=== PATIENT | female | born 1960 | race African-American/Black ===

== ENCOUNTER 2017-11-19 02:25 | Inpatient (IN) | payer SELFPAY ==
[~2017-11-19] VITALS: Ht 165.1 cm; Wt 140.6 kg
[2017-11-19] VITALS (10 sets, daily range): BP systolic 125–198; BP diastolic 79–103
[~2017-11-19 02:25] MED LIST: AMOX500C25 PO; ASPI325E46 PO; BENA40TA17 PO; CHLO120L4 PO; HYDR-1807 PO; POTA10CE85 PO; SIMV20TA6 PO; [UNRECOGNIZED DRUG - CODE] PO
--- NOTE | 2017-11-19 02:44 | NUR ---
PATIENT AMBULATED TO ER BED 10
[2017-11-19] MEDS ORDERED: KETOROLAC 60 MG/2 ML VIAL IM ONE (02:55)
--- NOTE | 2017-11-19 03:14 | NUR ---
PT PRESENTS TO ER C/O LOWER BACK PAIN X2 DAYS. BACK PAIN 10/10, RADIATING DOWN LEFT LEG. PT STATES SHE WAS MOVING "STUFF FOR A WEDDING" WHEN SHE FELT A "POP" ON LEFT SIDE OF LOWER BACK. PT DENIES TRAUMA TO AREA. SKIN TO AFFECTED AREA IS WARM, DRY, INTACT. PT STATES SHE HAS BEEN TAKING IBUPROFEN W/ MINIMAL RELIEF, LAST DOSE AT 10PM. PMH HTN, NKA
[2017-11-19] MEDS ORDERED: NACL 0.9% 1,000 ML IV SCH ×2 (04:01→08:07)
[2017-11-19] MEDS ORDERED: ONDANSETRON 4 MG/2 ML VIAL IVP ONE (04:05)
[2017-11-19] MEDS ORDERED: MORPHINE SULFATE 10 MG/ML SYR IVP ONE (04:05)
[2017-11-19 04:17] LABS: BASOPHILS # (AUTO) 0.1 K/uL (0.00-0.22); EOSINOPHILS # (AUTO) 0.1 K/uL (0-0.4); HEMATOCRIT 37.9 % (36-48); HEMOGLOBIN 12.3 g/dL (12.0-16.0); LYMPHOCYTES # (AUTO) 1.5 K/uL (2.5-16.5); MEAN CORPUSCULAR HEMOGLOBIN 28 pg (27-31); MEAN CORPUSCULAR HGB CONC 32 g/dL (33-37); MEAN CORPUSCULAR VOLUME 85 fL (80-94); MONOCYTES # (AUTO) 0.3 K/uL (0.8-1.0); MONOCYTES % (AUTO) 3.5 % (1.7-9.3); NEUTROPHILS # (AUTO) 5.6 K/uL (1.8-7.7); NEUTROPHILS % (AUTO) 74.5 % (42.2-75.2); PLATELET COUNT (AUTO) 286 K/uL (140-450); RED BLOOD CELL COUNT(AUTO) 4.47 MIL/uL (4.20-5.40); WHITE BLOOD COUNT (AUTO) 7.6 K/uL (4.8-10.8)
[2017-11-19 04:29] LABS: ANION GAP 14.1 (8-16); CARBON DIOXIDE 28.4 mmol/L (21-32); CREATININE 1.1 mg/dL (0.6-1.3); POTASSIUM 3.5 mmol/L (3.5-5.1)
--- NOTE | 2017-11-19 04:30 | NUR ---
PT IN BED RESTING, WILL CONTINUE TO MONITOR.
[2017-11-19 04:34] LABS: ALBUMIN 3.3 g/dL (3.4-5.0); TOTAL BILIRUBIN 0.3 mg/dL (0.0-1.0)
[2017-11-19 04:38] LABS: APPEARANCE,URINE CLEAR (CLEAR); BILIRUBIN,URINE NEGATIVE (NEGATIVE); BLOOD, URINE 1+ (NEGATIVE); COLOR,URINE YELLOW (YELLOW); LEUKOCYTE ESTERASE ,URINE NEGATIVE (NEGATIVE); NITRITE, URINE NEGATIVE (NEGATIVE); UGLUCOSE NEGATIVE (NEGATIVE)
[2017-11-19 04:52] LABS: HYALINE CASTS, URINE 0-10 /LPF (None Seen); RBC,URINE 3-10 (FEW) /HPF (0-5); WBC,URINE 0-5 (RARE) /HPF (0-5)
--- NOTE | 2017-11-19 05:15 | NUR ---
PT IN BED, LAYING DOWN, WILL CONTINUE TO MONITOR.
[2017-11-19] MEDS ORDERED: [UNRECOGNIZED DRUG - OTHER] BOTH EYES (06:35)
--- NOTE | 2017-11-19 07:17 | NUR ---
Pt report given to JOSE NEVES. Transfer of care at this time.
--- NOTE | 2017-11-19 07:25 | NUR ---
RECEIVED REPORT FROM JOSE MATA. PT C/O PAIN 05/16.BP 140/85,P 54/MIN. Respirations even and unlabored. NOTIFIED DR MONGE.
[2017-11-19] MEDS ORDERED: MORPHINE SULFATE 5 MG/ML VIAL IVP ONE (07:30)
[2017-11-19] MEDS ORDERED: ACETAMINOPHEN 325 MG TAB PO PRN (08:10)
[2017-11-19] MEDS ORDERED: DOCUSATE SODIUM 100 MG GELCAP PO PRN (08:10)
[2017-11-19] MEDS ORDERED: ONDANSETRON 4 MG/2 ML VIAL IM/IVP PRN (08:10)
[2017-11-19] MEDS ORDERED: HYDROcodone/APAP 7.5/325 MG 1 TAB PO PRN (08:10)
[2017-11-19] MEDS ORDERED: MORPHINE SULFATE 2 MG/ML SYR IVP PRN ×2 (08:10→23:50)
--- NOTE | 2017-11-19 08:30 | NUR ---
PATIENT BROUGHT TO UNIT FROM ER VIA GURNEY. RECEIVED REPORT AT BEDSIDE. PATIENT IS AMBULATORY AND AAOX4. NO SIGNS AND SYMPTOMS OF ACUTE DISTRESS NOTED AT THIS TIME. PATIENT HAS IV TO LEFT AC 20G, SITE IS CLEAN, DRY, PATENT AND INTACT. SKIN IS INTACT. ORIENTED PATIENT TO THE ROOM. EXPLAINED THE CALL LIGHT TO HER. MADE HER AWARE OF THE PHONE. PATIENT VERBALIZED UNDERSTANDING. MOST BELONGINGS AT BEDSIDE. REQUESTED TO KEEP WALLET IN SAFE. WILL CALL ADMITTING TO COME GET HER WALLET. BED IN LOWEST POSITION, SIDE RAILS UP X2, CALL LIGHT PLACED WITHIN REACH. WILL CONTINUE TO MONITOR.
--- NOTE | 2017-11-19 08:40 | NUR ---
Patient will be admitted to care of DR WHITE. Admited to TELE. Will go to room 119A. Belongings list completed. Report to JOSE FLORES.
[2017-11-19] MEDS ORDERED: HYDRALAZINE HYDROCHLORIDE PO SCH (09:00)
[2017-11-19] MEDS: hydrALAZINE 25 MG TAB PO SCH ×2 (09:00→21:33)
[2017-11-19] MEDS: POTASSIUM CHLORIDE 10 MEQ TABER PO SCH (09:00)
[2017-11-19] MEDS ORDERED: CHLORHEXIDINE GLUCONATE PO SCH (09:00)
[2017-11-19] MEDS: BENAZEPRIL 20 MG TAB PO SCH ×2 (09:00→21:34)
[2017-11-19] MEDS ORDERED: NON-FORMULARY ITEM (Potassium Chloride 1 TAB) PO SCH (09:00)
[2017-11-19] MEDS: DOCUSATE SODIUM 100 MG GELCAP PO SCH (09:00)
[2017-11-19] MEDS: ASPIRIN 325 MG TABEC PO SCH (09:00)
[2017-11-19] MEDS ORDERED: NON-FORMULARY ITEM (Benazepril Hydrochloride (Benazepril) 40 MG) PO SCH (09:00)
--- NOTE | 2017-11-19 09:15 | NUR ---
PATIENT HAS BEEN SCREENED AND CATEGORIZED HIGH NUTRITION RISK. PATIENT WILL BE SEEN WITHIN 1-2 DAYS OF ADMISSION. 11/19/18-11/20/[address]
--- NOTE | 2017-11-19 09:20 | NUR ---
ADMITTING CAME AND COLLECTED PATIENTS BLACK WALLET TO KEEP IN THE SAFE. FINANCIAL CONTENTS OF THE WALLET CONTAIN: $50X1, $20X1, $5X1, $1'SX4, $1.'SX2, $.25'SX8, $.05X2, $.01'SX2 = $81.32. A BLUE VISA [employer] CREDIT CARD, SOCIAL SECURITY CARD, AAA CARD, [employer] CARD, [employer] VISA CARD. PATIENT SIGNED VALUABLES RECORD. PLACED COPY IN CHART.
[2017-11-19 10:40] LABS: CHOL/HDL RATIO 2.2 (1-4.5); FREE T4 (FREE THYROXINE) 0.97 ng/dL (0.76-1.46); MAGNESIUM 1.8 mg/dL (1.8-2.4); PHOSPHORUS 3.2 mg/dL (2.5-4.9); THYROID STIMULATING HORMONE 2.78 uIU/mL (0.34-3.74)
[2017-11-19 13:02] LABS: PROTHROMBIN TIME 9.1 secs (10.8-13.4)
[2017-11-19] MEDS ORDERED: CHLO50TA33 PO (13:36)
[2017-11-19] MEDS ORDERED: KETOROLAC 30 MG/ML VIAL IM PRN (14:05)
[2017-11-19] MEDS ORDERED: LORazepam 0.5 MG TAB PO PRN (15:35)
--- NOTE | 2017-11-19 16:30 | NUR ---
PATIENT WAS TAKEN TO THE OR VIA GURNEY.
[2017-11-19] MEDS ORDERED: BUPIVACAINE-MPF 0.25% 30 ML VIAL INJ ONE (16:31)
[2017-11-19] MEDS ORDERED: ceFAZolin 1,000 MG VIAL ONE (16:31)
[2017-11-19] MEDS ORDERED: ROCURONIUM 50 MG/5 ML VIAL IV ONE (16:50)
[2017-11-19] MEDS ORDERED: hydrALAZINE 20 MG/ML VIAL ONE (16:50)
[2017-11-19] MEDS ORDERED: SUCCINYLCHOLINE CHLORIDE 200 MG/10 ML VIAL IVP ONE (16:50)
[2017-11-19] MEDS ORDERED: cefTRIAXone 1,000 MG VIAL ONE (16:50)
[2017-11-19] MEDS ORDERED: DEXAMETHASONE 10 MG/ML VIAL ONE (16:50)
[2017-11-19] MEDS ORDERED: SEVOFLURANE 250 ML BTL INH ONE (16:50)
[2017-11-19] MEDS ORDERED: PROPOFOL 200 MG/20 ML VIAL IV ONE (16:50)
[2017-11-19] MEDS ORDERED: MIDAZOLAM 2 MG/2 ML VIAL ONE (16:56)
[2017-11-19] MEDS ORDERED: fentaNYL 0.05 MG/ML VIAL ONE (16:56)
[2017-11-19] MEDS ORDERED: MEPERIDINE 50 MG/ML SYR ONE (16:56)
[2017-11-19] MEDS: LACTATED RINGERS 1,000 ML IV SCH ×2 (18:23→20:26)
[2017-11-19] MEDS ORDERED: ONDANSETRON 4 MG/2 ML VIAL IVP PRN (18:25)
[2017-11-19] MEDS ORDERED: MEPERIDINE 25 MG/ML SYR IVP PRN (18:25)
[2017-11-19] MEDS ORDERED: diphenhydrAMINE 50 MG/ML VIAL IVP PRN (18:25)
--- NOTE | 2017-11-19 19:37 | NUR ---
ENDORSED PATIENT TO NIGHT RN FOR CONTINUITY OF CARE. PATIENT IN STABLE CONDITION
--- NOTE | 2017-11-19 19:46 | NUR ---
PATIENT STILL IN OPERATING ROOM SINCE 1599
[2017-11-19] MEDS: HYDROmorphone 1 MG/ML AMP IVP PRN ×2 (20:05→20:15)
[2017-11-19] MEDS ORDERED: HYDROmorphone PFS 2 MG/ML SYR ONE (20:13)
[2017-11-19 20:21] LABS: HEMATOCRIT 37.3 % (36-48); HEMOGLOBIN 12.2 g/dL (12.0-16.0); MEAN CORPUSCULAR HEMOGLOBIN 28 pg (27-31); MEAN CORPUSCULAR HGB CONC 33 g/dL (33-37); MEAN CORPUSCULAR VOLUME 85 fL (80-94); NEUTROPHILS % (AUTO) 81.6 % (42.2-75.2); PLATELET COUNT (AUTO) 255 K/uL (140-450); RED CELL DISTRIBUTION WIDTH 15.5 % (11.6-13.7)
[2017-11-19 20:22] LABS: BASOPHILS % (AUTO) 0.4 % (0.0-2.0); EOSINOPHILS % (AUTO) 0.2 % (0.0-4.0); LYMPHOCYTES # (AUTO) 1.5 K/uL (2.5-16.5); LYMPHOCYTES % (AUTO) 15.2 % (20.5-51.1); MONOCYTES # (AUTO) 0.3 K/uL (0.8-1.0); MONOCYTES % (AUTO) 2.6 % (1.7-9.3); NEUTROPHILS # (AUTO) 8.2 K/uL (1.8-7.7)
[2017-11-19 20:31] LABS: ANION GAP 10.2 (8-16); CREATININE 0.9 mg/dL (0.6-1.3); POTASSIUM 3.2 mmol/L (3.5-5.1)
--- NOTE | 2017-11-19 20:38 | NUR ---
PT CAME BACK FROM SURGERY, REPORT RECEIVED FROM OR NURSE PEARSON RN, PT STABLE, NO DISTRESS NOTED, IV TO L HAND 22 G INFUSING LACTATE RINGER, PATENT, INITIAL ASSESSMENT DONE, ALL SAFETY PRECAUTION MET, WILL CONTINUE TO MONITOR.
[2017-11-19] MEDS ORDERED: [UNRECOGNIZED DRUG - OTHER] BOTH EYES SCH (21:00)
--- NOTE | 2017-11-19 21:25 | NUR ---
ROCHEPHIN WAS GIVEN IN RECOVERY ROOM AT 1720.
[2017-11-19] MEDS: SIMVASTATIN 20 MG TAB PO SCH (21:34)
[2017-11-19] MEDS: DEXT 5% / NACL 0.45% 1,000 ML IV SCH (23:12)
--- NOTE | 2017-11-19 23:49 | NUR ---
PT STATED STILL FEELING PAIN, 05/16 ON THE ABDOMINAL AREA, REPORTED TO DR. LOPEZ REGARDING PT PAIN NOT RELIEVED BY PAIN MEDICATION, STATED UNDERSTANDING AND WILL ORDER ANOTHER DOSE OF MORPHINE 2MG.
[2017-11-19] MEDS ORDERED: MORPHINE SULFATE 2 MG/ML SYR IVP SCH (23:50)
[2017-11-20] MEDS ORDERED: MORPHINE SULFATE 2 MG/ML SYR ONE (00:10)
--- NOTE | 2017-11-20 00:13 | NUR ---
PT STILL C/O OF PAIN 05/16, PAIN MEDICATION GIVEN, DR. LOPEZ AWARE.
[2017-11-20 00:38] VITALS: BP 138/79
[2017-11-20] MEDS: LACTATED RINGERS 1,000 ML IV SCH ×2 (02:43→11:03)
[2017-11-20] MEDS: DEXT 5% / NACL 0.45% 1,000 ML IV SCH ×2 (03:35→09:33)
[2017-11-20] MEDS: MORPHINE SULFATE 4 MG/ML SYR IVP PRN ×3 (03:36→10:53)
--- NOTE | 2017-11-20 03:36 | NUR ---
PT C/O OF PAIN ON THE ABD, PAIN MEDICATION GIVEN, PT TOLERATED WELL, NO DISTRESS NOTED, WILL CONTINUE TO MONITOR.
[2017-11-20 04:00] VITALS: BP 126/78
--- NOTE | 2017-11-20 05:50 | NUR ---
AKINS CATH TAKEN OUT, PT TOLERATED WELL, NO DISTRESS NOTED, CALL LIGHT WITHIN REACH, WILL CONTINUE TO MONITOR.
[2017-11-20 06:19] LABS: T4 (THYROXINE) 6.9 ug/dL (4.5-12.0)
[2017-11-20 06:37] LABS: ANION GAP 10.7 (8-16); CARBON DIOXIDE 30.2 mmol/L (21-32); CREATININE 1.1 mg/dL (0.6-1.3); POTASSIUM 3.9 mmol/L (3.5-5.1)
[2017-11-20 06:42] LABS: HEMATOCRIT 36.2 % (36-48); HEMOGLOBIN 12.1 g/dL (12.0-16.0); MEAN CORPUSCULAR HEMOGLOBIN 29 pg (27-31); MEAN CORPUSCULAR VOLUME 85 fL (80-94); RED BLOOD CELL COUNT(AUTO) 4.26 MIL/uL (4.20-5.40); WHITE BLOOD COUNT (AUTO) 10.5 K/uL (4.8-10.8)
[2017-11-20 06:52] LABS: MEAN CORPUSCULAR HGB CONC 34 g/dL (33-37); PLATELET COUNT (AUTO) 269 K/uL (140-450); RED CELL DISTRIBUTION WIDTH 15.7 % (11.6-13.7)
--- NOTE | 2017-11-20 07:30 | NUR ---
RECEIVED PT AAOX4. NO SOB NOTED. NO C/O PAIN AT THIS TIME. IV TO LT HAND PATENT AND INTACT. CHEST CLEAR, DIMINISHED AIR ENTRY TO THE BASES, WITH OXYGEN AT 2LPM VIA CANNULA FOR COMFORT. WITH NG TUBE TO LEFT NARES CONNECTED TO LOW INTERMITTENT WALL SUCTION, DRAINING SMALL AMOUNTS OF SLIGHT YELLOW STOMACH FLUIDS. ABDOMEN LARGE AND SOFT, WITH HYPOACTIVE BOWEL SOUNDS NOTED. WITH (VERTICAL) ABDOMINAL SURGICAL INCISION S/P EXLAP, UMBILICAL HERNIA REPAIR 11/19/2017, GAUZE DRESSING, COVERED WITH TRANSPARENT TAPE, CLEAN DRY AND INTACT. INSTRUCTED PT ON THE USE OF INCENTIVE SPIROMETRY. INSTRUCTED PT TO CALL FOR ASSISTANCE, CALL LIGHT WITHIN REACH, PT VERBALIZED UNDERSTANDING.
--- NOTE | 2017-11-20 07:35 | NUR ---
ENDORSED PLAN OF CARE TO DAY SHIFT NURSE EDNA, PT STABLE, NO DISTRESS NOTED, CALL LIGHT WITHIN REACH.
[2017-11-20 08:00] VITALS: BP 123/77
[2017-11-20 09:28] LABS: LYMPHOCYTES % (MANUAL) 10 % (20-46)
[2017-11-20 09:29] LABS: MONOCYTES % (MANUAL) 7 % (5-12)
--- NOTE | 2017-11-20 09:30 | NUR ---
BEDSIDE COMMODE PROVIDED. PT INSTRUCTED TO CALL FOR ASSISTANCE, VERBALIZED UNDERSTANDING.
[2017-11-20] MEDS: PANTOPRAZOLE 40 MG INJ VIAL IVP SCH (09:33)
[2017-11-20] MEDS: DOCUSATE SODIUM 100 MG GELCAP PO SCH (10:46)
[2017-11-20] MEDS: hydrALAZINE 25 MG TAB PO SCH ×2 (10:46→20:35)
[2017-11-20] MEDS: POTASSIUM CHLORIDE 10 MEQ TABER PO SCH (10:47)
[2017-11-20] MEDS: BENAZEPRIL 20 MG TAB PO SCH ×2 (10:47→20:35)
[2017-11-20] MEDS: ASPIRIN 325 MG TABEC PO SCH (10:48)
[2017-11-20 12:00] VITALS: BP 109/66
--- NOTE | 2017-11-20 13:00 | NUR ---
PT SEEN BY DR. YARBROUGH WITH NEW ORDERS.
--- NOTE | 2017-11-20 13:05 | NUR ---
NO DRESSING CHANGED PER DR. YARBROUGH UNTIL HIS VISIT TOMORROW 11/21/2017.
[2017-11-20] MEDS: POTASSIUM CHL 20 MEQ/D5-1/2NS 1,000 ML IV SCH ×3 (13:31→22:56)
[2017-11-20] MEDS ORDERED: HYDROmorphone PFS 2 MG/ML SYR IVP PRN (13:35)
--- NOTE | 2017-11-20 13:37 | NUR ---
NG TUBE DISCONTINUED. PT TOLERATED PROCEDURE WELL. TOTAL OUTPUT SINCE 7AM THIS MORNING 80 MLS OF LIGHT YELLOW STOMACH FLUIDS.
--- NOTE | 2017-11-20 13:57 | NUR ---
11/20/2017 RD INITIAL ASSESSMENT COMPLETED PLEASE REFER TO NUTRITION ASSESSMENT UNDER CARE ACTIVITY FOR ESTIMATED NUTRITIONAL NEEDS. 1.CONTINUE NPO STATUS MEDICALLY APPROPRIATE. 2.ADVANCE DIET TOLERATED ONCE PT ABLE TO TOLERATE PO INTAKE. RD TO FOLLOW-UP IN 2-3 DAYS PATIENT IS HIGH RISK. SEA ZAPATA RD
--- NOTE | 2017-11-20 14:00 | NUR ---
ENCOURAGED PT TO URINATE WITH THE USE OF BEDPAN, PT REFUSED STATED SHE DOES NOT FEEL LIKE URINATING YET. WILL FOLLOW UP.
--- NOTE | 2017-11-20 16:00 | NUR ---
PT STILL NOT URINATING SINCE THE AKINS CATHETER WAS DISCONTINUED. VISITORS AT THE BEDSIDE. PT STATED SHE WILL GET UP TO THE BEDSIDE COMMODE WHEN HER VISITORS LEAVE.
--- NOTE | 2017-11-20 17:30 | NUR ---
PT ABLE TO URINATE IN THE BEDSIDE COMMODE WITH ASSISTANCE. NOTED 800 MLS OF SLIGHTLY DARK ISSAC URINE. URINE SPECIMEN COLLECTED AND SENT TO LAB FOR UDS. ACTIVITY TOLERATED WELL BY PT.
--- NOTE | 2017-11-20 18:58 | NUR ---
PT RESTING. NO SOB NOTED. NO SIGNS OF PAIN AT THIS TIME. WILL ENDORSE TO NEXT SHIFT NURSE FOR CONTINUITY OF CARE.
[2017-11-20 19:31] LABS: BARBITURATE, URINE POS. ng/ml (NEG <=200); BENZODIAZEPINE, URINE POS. ng/mL (NEG <=200); CANNABINOID, URINE NEG. ng/mL (NEG <=50); COCAINE, URINE NEG. ng/mL (NEG <=300); OPIATE, URINE POS. ng/mL (NEG <=2000); PHENCYCLIDINE SCREEN,URINE NEG. ng/mL (NEG <=25)
--- NOTE | 2017-11-20 19:53 | NUR ---
RECEIVED FROM AM RN IN BED WITH SPOUSE VISITING. MORBIDLY OBESE FEMALE .ABLE TO VERBALIZE NEEDS WELL. NO SOB. NO PAIN COMPLAINTS AT THIS TIME. PT. S/P EXPLORE LAP /HERNIA REPAIR/LYSIS ADHESION REPAIR. ABDOMINAL WALL DRESSING INTACT AND NO BLEEDING. IVF SITE TO LEFT HAND#22 INTACT AND NO INFILTRATION NOTED. CALL LIGHT WITH IN REACH. CARE PLANS FOR THE NIGHT DISCUSSED WITH HER AND TO USE CALL LIGHT FOR ANY HELP SHE MAY NEED OR IF IN PAIN. A/O X4. ROM X 4. CLEAR SPEECH.
[2017-11-20 20:27] VITALS: BP 117/67
[2017-11-20] MEDS: SIMVASTATIN 20 MG TAB PO SCH (20:35)
[2017-11-20] MEDS: LATANOPROST 0.005% OP 2.5 ML BTL OP SCH (20:36)
[2017-11-20] MEDS ORDERED: SIMETHICONE 80 MG TAB.CHEW PO SCH (20:55)
[2017-11-20] MEDS: HYDROmorphone PFS 2 MG/ML SYR IVP PRN (22:44)
--- NOTE | 2017-11-20 23:28 | NUR ---
PT. AMBULATING AROUND THE UNIT WITH STANDBY ASSIST BY CASE PLANNER. MEDICATED WITH DILAUDID 1MG ORDERED. S/P EXPLORE LAP. VERBALIZES WELL. ABLE TO USE CALL LIGHT . A /O X 4.
--- NOTE | 2017-11-21 | NUR ---
NO COMPLAINTS DONE. STILL AWAKE WATCHING TV. ABLE TO USE CALL LIGHT FOR HELP.
[2017-11-21 05:44] VITALS: BP 113/74
[2017-11-21] MEDS: HYDROmorphone PFS 2 MG/ML SYR IVP PRN (05:49)
--- NOTE | 2017-11-21 05:56 | NUR ---
PT. BEEN AWAKE ALL NIGHT. REQUESTED FOR PAIN RELIEVER AT THIS TIME AND ANTI NAUSEA MEDICATION. MEDICATED WITH ZOFRAN AND DILAUDID IVP ORDERED. AWAKE, ALERT AND ORIENTED. ENCOURAGED TO STOP WATCHING TV RT PT. BEEN CLOSING EYES THIS SHIFT BUT EVENTUALLY OPENS EYES AND WATCHES TV. NO BLEEDING TO INCISION SITE.
[2017-11-21 06:14] LABS: BASOPHILS # (AUTO) 0.1 K/uL (0.00-0.22); BASOPHILS % (AUTO) 0.7 % (0.0-2.0); EOSINOPHILS % (AUTO) 0.2 % (0.0-4.0); HEMATOCRIT 34.5 % (36-48); HEMOGLOBIN 11.3 g/dL (12.0-16.0); LYMPHOCYTES # (AUTO) 1.5 K/uL (2.5-16.5); LYMPHOCYTES % (AUTO) 14.6 % (20.5-51.1); MEAN CORPUSCULAR HEMOGLOBIN 28 pg (27-31); MEAN CORPUSCULAR HGB CONC 33 g/dL (33-37); MEAN CORPUSCULAR VOLUME 85 fL (80-94); MONOCYTES # (AUTO) 0.5 K/uL (0.8-1.0); MONOCYTES % (AUTO) 4.9 % (1.7-9.3); NEUTROPHILS # (AUTO) 8.4 K/uL (1.8-7.7); NEUTROPHILS % (AUTO) 79.6 % (42.2-75.2); PLATELET COUNT (AUTO) 290 K/uL (140-450); RED BLOOD CELL COUNT(AUTO) 4.06 MIL/uL (4.20-5.40); RED CELL DISTRIBUTION WIDTH 14.6 % (11.6-13.7); WHITE BLOOD COUNT (AUTO) 10.5 K/uL (4.8-10.8)
[2017-11-21 06:31] LABS: ANION GAP 11.5 (8-16); CARBON DIOXIDE 27.7 mmol/L (21-32); CREATININE 1.2 mg/dL (0.6-1.3); POTASSIUM 3.2 mmol/L (3.5-5.1)
[2017-11-21] MEDS: POTASSIUM CHL 20 MEQ/D5-1/2NS 1,000 ML IV SCH ×2 (07:10→16:00)
--- NOTE | 2017-11-21 07:35 | NUR ---
ENDORSED TO THE NEXT RN FOR CONTINUITY OF CARE. SLEEPING. WOKE UP EASILY WHEN SHE HEARD US ENDORSING RN TO RN. NO COMPLAINTS DONE. GOOD AFFECT. SMILING. CALL LIGHT WITH IN REACH. DRESSING TO ABDOMEN INTACT AND NO BLEEDING.
--- NOTE | 2017-11-21 07:36 | NUR ---
RECEIVED REPORT FROM FACILITY ASSISTANT NURSE JALIL AT BEDSIDE FOR CONTINUITY OF CARE. PT IS AWAKE AND ORIENTED X4. INTRODUCED SELF AND UPDATED BOARD. NO SIGN OF DISTRESS. ABD DRESSING DRY AND INTACT. PT STATED SHE HAS NOT PASSED GAS YET. REPORTED THAT SHE AMBULATED DOWN THE [place] LAST NIGHT. NO COMPLAINTS AT THIS TIME. BED IN LOW POSITION, WHEELS LOCKED, CALL LIGHT WITHIN REACH. WILL CONTINUE TO MONITOR,
[2017-11-21 08:00] VITALS: BP 104/53
--- NOTE | 2017-11-21 08:10 | NUR ---
AWAKE AND ALERT RESPONSIVE TO FORGING MACHINE OPERATOR VERBAL COMMANDS C/O NASAL DRYNESS WITH SUPPLEMENTAL OXYGEN USE ADDED HUMIDIFIER
[2017-11-21] MEDS: BENAZEPRIL 20 MG TAB PO SCH ×2 (09:00→21:22)
[2017-11-21] MEDS: hydrALAZINE 25 MG TAB PO SCH ×2 (09:00→21:22)
[2017-11-21] MEDS: DOCUSATE SODIUM 100 MG GELCAP PO SCH (09:24)
[2017-11-21] MEDS: POTASSIUM CHLORIDE 10 MEQ TABER PO SCH (09:24)
[2017-11-21] MEDS: ASPIRIN 325 MG TABEC PO SCH (09:24)
[2017-11-21] MEDS: PANTOPRAZOLE 40 MG INJ VIAL IVP SCH (09:24)
[2017-11-21] MEDS ORDERED: MAGNESIUM OXIDE 400 MG TAB PO SCH (09:35)
[2017-11-21] MEDS ORDERED: ALBUTEROL 0.083% 2.5 MG/3 ML NEBU INH PRN (09:35)
[2017-11-21] MEDS ORDERED: IPRATROPIUM 0.02% 0.5 MG/2.5 ML NEBU INH PRN (09:35)
--- NOTE | 2017-11-21 11:45 | NUR ---
PT GOT UP OUT OF BED TO USE BSC. PT SAID SHE ACCIDENTALLY GOT URINE ON FLOOR. GAVE CLEAN GOWN, SOCKS AND TOWELS FOR PT CLEAN. PAGED EVS TO MOP FLOOR. PT WENT BACK TO CHAIR. WATCHING TV. NO SIGNS OF DISTRESS. PT DENIES PAIN. CALL LIGHT WITHIN REACH. WILL CONTINUE TO MONITOR.
[2017-11-21] MEDS: HYDROcodone/APAP 10/325 MG 1 TAB TAB PO PRN ×2 (13:49→21:23)
--- NOTE | 2017-11-21 15:00 | NUR ---
PT IS ASLEEP IN BED RIGHT NOW. ASKED FOR WARM BLANKET. DENIES ABD PAIN AT THIS TIME. CALL LIGHT WITHIN REACH. WILL CONTINUE TO MONITOR.
[2017-11-21 16:00] VITALS: BP 145/82
--- NOTE | 2017-11-21 17:33 | NUR ---
STARTED IV TO R HAND 24G. D/C IV TO L WRIST 22G. IV CATHETER TIP INTACT. APPLIED DRESSING AND PRESSURE TO SITE NO BLEEDING NOTED.
--- NOTE | 2017-11-21 19:14 | NUR ---
ENDORSED PT TO CLOTH SHRINKER NURSE JALIL AT BEDSIDE FOR CONTINUITY OF CARE. PT IN STABLE CONDITION.
[2017-11-21] MEDS ORDERED: BUDESONIDE 0.25 MG/2 ML NEBU INH SCH (19:30)
--- NOTE | 2017-11-21 19:50 | NUR ---
RECEIVED FROM AM RN IN BED SLEEPING. PER AM RN PT. HAD AMBULATED THE HALLWAY AND ABLE TO VERBALIZE SIMPLE NEEDS WELL. CALL LIGHT WITH IN REACH. IVF SITE INTACT AND NO INFILTRATION. FLACC 0-.
[2017-11-21 21:05] VITALS: BP 147/85
[2017-11-21] MEDS ORDERED: POTASSIUM CHLORIDE 20% 40 MEQ/15 ML UDC GT SCH (21:15)
[2017-11-21] MEDS: SIMVASTATIN 20 MG TAB PO SCH (21:23)
[2017-11-21] MEDS: LATANOPROST 0.005% OP 2.5 ML BTL OP SCH (21:26)
--- NOTE | 2017-11-22 | NUR ---
PT. STILL WATCHING TV. NO COMPLAINTS AT THIS T BHARTI. ABLE TO VERBALIZE NEEDS WELL. USES CALL LIGHT FOR HELP.
[2017-11-22] MEDS: POTASSIUM CHL 20 MEQ/D5-1/2NS 1,000 ML IV SCH ×2 (03:06→15:30)
[2017-11-22] MEDS: HYDROcodone/APAP 10/325 MG 1 TAB TAB PO PRN ×4 (03:16→17:50)
[2017-11-22 03:20] VITALS: BP 150/92
--- NOTE | 2017-11-22 04:00 | NUR ---
PT. SLEEPING AT THIS TIME. NO RESTLESSNESS NOTED. DRESSING TO ABDOMEN INTACT. NO BLEEDING.
[2017-11-22 06:58] LABS: BASOPHILS % (AUTO) 0.4 % (0.0-2.0); EOSINOPHILS # (AUTO) 0.1 K/uL (0-0.4); EOSINOPHILS % (AUTO) 0.6 % (0.0-4.0); HEMATOCRIT 30.3 % (36-48); HEMOGLOBIN 10.1 g/dL (12.0-16.0); LYMPHOCYTES % (AUTO) 10.6 % (20.5-51.1); MEAN CORPUSCULAR HEMOGLOBIN 28 pg (27-31); MEAN CORPUSCULAR HGB CONC 33 g/dL (33-37); MEAN CORPUSCULAR VOLUME 85 fL (80-94); MONOCYTES # (AUTO) 0.7 K/uL (0.8-1.0); MONOCYTES % (AUTO) 7.6 % (1.7-9.3); NEUTROPHILS # (AUTO) 7.5 K/uL (1.8-7.7); NEUTROPHILS % (AUTO) 80.8 % (42.2-75.2); PLATELET COUNT (AUTO) 228 K/uL (140-450); RED BLOOD CELL COUNT(AUTO) 3.56 MIL/uL (4.20-5.40); RED CELL DISTRIBUTION WIDTH 14.6 % (11.6-13.7); WHITE BLOOD COUNT (AUTO) 9.3 K/uL (4.8-10.8)
--- NOTE | 2017-11-22 07:44 | NUR ---
ENDORSED TO THE NEXT RN FOR CONTINUITY OF CARE.
--- NOTE | 2017-11-22 07:45 | NUR ---
REPORT RECEIVED FROM GARAGE DOOR OPENER INSTALLER NURSE, JALIL, PT RESTING WITH EYES CLOSED, RESP EVEN UNLABORED ON RA, SKIN WARM DRY COLOR WNL, ABD MIDLINE DRESSING CDI, PT DENIES PAIN OR DISCOMFORT, IVF INFUSING WELL, SITE WNL, PLAN OF CARE REVIEWED, ALL SAFETY MEASURES IN PLACE, WILL CONTINUE TO MONITOR.
[2017-11-22 08:00] VITALS: BP 164/90
[2017-11-22 08:10] LABS: MAGNESIUM 1.4 mg/dL (1.8-2.4)
[2017-11-22 08:56] LABS: ANION GAP 10.4 (8-16); CARBON DIOXIDE 27.4 mmol/L (21-32); CREATININE 1.2 mg/dL (0.6-1.3); POTASSIUM 3.8 mmol/L (3.5-5.1)
--- NOTE | 2017-11-22 09:02 | NUR ---
PT SITTING UP IN CHAIR EATING BREAKFAST, STATE PAIN IS STARTING, WILL MEDICATE WITH NORCO PER PRN ORDER.
[2017-11-22] MEDS: PANTOPRAZOLE 40 MG INJ VIAL IVP SCH (09:29)
[2017-11-22] MEDS: DOCUSATE SODIUM 100 MG GELCAP PO SCH (09:30)
[2017-11-22] MEDS: hydrALAZINE 25 MG TAB PO SCH ×2 (09:30→20:59)
[2017-11-22] MEDS: BENAZEPRIL 20 MG TAB PO SCH ×2 (09:30→20:59)
[2017-11-22] MEDS: ASPIRIN 325 MG TABEC PO SCH (09:30)
[2017-11-22] MEDS: POTASSIUM CHLORIDE 10 MEQ TABER PO SCH (09:31)
[2017-11-22] MEDS ORDERED: HYDROcodone/APAP 10/325 MG 1 TAB TAB PO PRN ×2 (10:20→11:45)
--- NOTE | 2017-11-22 10:32 | NUR ---
PT STATES PAIN DID NOT IMPROVE, OK TO GIVE ANOTHER DOSE OF NORCO PER DR COLLINS.
[2017-11-22] MEDS ORDERED: SODIUM PHOS / POTASSIUM PHOS 1 PKT PDR PO SCH (11:00)
[2017-11-22] MEDS ORDERED: MAG SULF 2000 MG/WATER PREMIX 100 ML IV SCH (11:00)
--- NOTE | 2017-11-22 12:02 | NUR ---
PT SITTING UP TALKING WITH VISITORS, STATES PAIN IS BETTER NOW, STATES SHE WALKED AROUND THE ROOM, SMILING LAUGHING IN NAD, WILL CONTINUE TO MONTIOR.
--- NOTE | 2017-11-22 13:30 | NUR ---
CM NOTE CHART REVIEW DONE FOR CONTINUED STAY CRITERIA
--- NOTE | 2017-11-22 14:45 | NUR ---
RIGHT HAND IV CLOTTED, UNABLE TO FLUSH, NEW IV STARTED TO RIGHT WRIST 22G, PT FORREST WELL, IVF CONTINUES, WILL CONTINUE TO MOITNR
[2017-11-22 16:00] VITALS: BP 138/85
--- NOTE | 2017-11-22 16:25 | NUR ---
DR YARBROUGH AT BEDSIDE DRESSING CHANGED, WOUND WELL APPROXIMATED WITH GENIA, NO REDNESS SWELLING OR DRAINAGE NOTED, OK TO HAVE FULL LIQ DIET FOR DINNER, AND ADVACE TO REGULAR DIET TOMORROW AM IF TOLERATING. PT ALSO ENCOURAGED TO GET UP TO AMBULATE IN THE HALLWAY. PT REPORTS PASSING GAS TODAY.
--- NOTE | 2017-11-22 18:00 | NUR ---
PT UP AMBULATING AROUND THE HALLWAY WITH STEADY GAIT.
--- NOTE | 2017-11-22 19:36 | NUR ---
RECEIVED FROM AM RN IN BED WITH VISITORS. NO COMPLAINTS DONE. CALL LIGHT WITH IN REACH. CARE PLANS FOR THE NIGHT DISCUSSED WITH PT. IVF SITE INTACT AND NO INFILTRATION. A/O X 4. ROM X 4. PT. PER AM RN AMBULATING WELL IN HER SHIFT. DRESSING IN ABDOMEN INTACT AND NO BLEEDING.
[2017-11-22 20:44] VITALS: BP 134/79
[2017-11-22] MEDS: LATANOPROST 0.005% OP 2.5 ML BTL OP SCH (21:00)
[2017-11-22] MEDS: SIMVASTATIN 20 MG TAB PO SCH (21:00)
--- NOTE | 2017-11-22 22:21 | NUR ---
PT. STILL AWAKE AT THIS TIME TALKING TO FAMILY MEMBER ON THE PHONE. CALL LIGHT WITH IN REACH. NO COMPLAINTS DONE.
[2017-11-23] MEDS: HYDROcodone/APAP 10/325 MG 1 TAB TAB PO PRN ×2 (01:55→06:01)
[2017-11-23] MEDS: POTASSIUM CHL 20 MEQ/D5-1/2NS 1,000 ML IV SCH (02:02)
[2017-11-23 02:06] VITALS: BP 138/94
--- NOTE | 2017-11-23 02:09 | NUR ---
PT. AWAKE AND REQUESTED FOR PAIN RELIEVER. MEDICATED WITH NORCO ORDERED. A/O X 4. CALL LIGHT WITH IN REACH AT ALL TIMES.
--- NOTE | 2017-11-23 05:03 | NUR ---
SLEEPING WELL POST PAIN RELIEVER ADMINISTRATION. CALL LIGHT BESIDE HER IN BED. A/O X 4. ROM X 4. TURNS SELF SIDE TO SIDE.
[2017-11-23 06:07] VITALS: BP 141/91
[2017-11-23 07:10] LABS: BASOPHILS % (AUTO) 0.4 % (0.0-2.0); EOSINOPHILS # (AUTO) 0.2 K/uL (0-0.4); EOSINOPHILS % (AUTO) 2.2 % (0.0-4.0); HEMATOCRIT 27.7 % (36-48); HEMOGLOBIN 9.3 g/dL (12.0-16.0); LYMPHOCYTES # (AUTO) 1.6 K/uL (2.5-16.5); LYMPHOCYTES % (AUTO) 21.8 % (20.5-51.1); MEAN CORPUSCULAR HEMOGLOBIN 28 pg (27-31); MEAN CORPUSCULAR HGB CONC 34 g/dL (33-37); MEAN CORPUSCULAR VOLUME 85 fL (80-94); MONOCYTES # (AUTO) 0.6 K/uL (0.8-1.0); MONOCYTES % (AUTO) 7.7 % (1.7-9.3); NEUTROPHILS # (AUTO) 4.8 K/uL (1.8-7.7); NEUTROPHILS % (AUTO) 67.9 % (42.2-75.2); PLATELET COUNT (AUTO) 255 K/uL (140-450); RED BLOOD CELL COUNT(AUTO) 3.27 MIL/uL (4.20-5.40); RED CELL DISTRIBUTION WIDTH 14.5 % (11.6-13.7); WHITE BLOOD COUNT (AUTO) 7.2 K/uL (4.8-10.8)
[2017-11-23] MEDS ORDERED: oxyCODONE/APAP 5/325 MG 1 TAB TAB PO PRN (07:15)
--- NOTE | 2017-11-23 07:17 | NUR ---
ENDORSED TOT HE NEXT RN FOR CONTINUITY OF CARE. SLEEPING. WOKE UP EASILY WHEN TOUCHED. A/O X 4. NO COMPLAINTS DONE.
--- NOTE | 2017-11-23 07:30 | NUR ---
PT REPORT RECEIVED FROM VOLUNTEER PATIENT REPRESENTATIVE NURSE, NO S/S OF ACUTE DISTRESS ON RM AIR. SKIN WARM AND DRY TO TOUCH. ABD MIDLINE DRESSING INTACT AND DRY. PT DENIES PAIN AT THIS TIME. IV CATH NOTED TO THE R WRIST 22G, INFUSING WELL, ASYMPTOMATIC. PLAN OF CARE DISCUSSED WITH PT, ALL SAFETY MEASURES IN PLACE, WILL CONTINUE TO MONITOR.
[2017-11-23 07:41] LABS: ANION GAP 11.5 (8-16); CARBON DIOXIDE 27.4 mmol/L (21-32); CREATININE 1.1 mg/dL (0.6-1.3); POTASSIUM 3.9 mmol/L (3.5-5.1)
[2017-11-23] MEDS: ASPIRIN 325 MG TABEC PO SCH (08:54)
[2017-11-23] MEDS: POTASSIUM CHLORIDE 10 MEQ TABER PO SCH (08:54)
[2017-11-23] MEDS: SIMETHICONE 80 MG TAB.CHEW PO SCH ×2 (08:54→13:27)
[2017-11-23] MEDS: DOCUSATE SODIUM 100 MG GELCAP PO SCH (08:55)
[2017-11-23] MEDS: BENAZEPRIL 20 MG TAB PO SCH (08:55)
[2017-11-23] MEDS: BISACODYL 10 MG SUPP RC SCH ×2 (08:55→09:55)
[2017-11-23] MEDS: PANTOPRAZOLE 40 MG INJ VIAL IVP SCH (08:55)
[2017-11-23] MEDS: hydrALAZINE 25 MG TAB PO SCH (08:56)
--- NOTE | 2017-11-23 09:05 | NUR ---
PT THINKS SHE MIGHT BE ABLE TO HAVE BM ON HER OWN AFTER THE MILK SHAKE. SHE WANTS TO HOLD THE DULCOLAX FOR LATER.
[2017-11-23] MEDS ORDERED: DOCU-299 PO (11:15)
[2017-11-23] MEDS ORDERED: ACET-9494 PO (11:15)
--- NOTE | 2017-11-23 12:30 | NUR ---
JACQUARD LOOM HEDDLES TIER AMBULATED WITH PT ALONG THE HALLWAY. NO S/S OF ACUTE DISTRESS.
--- NOTE | 2017-11-23 13:00 | NUR ---
PIC OF THE ABD INCISION HAS BEEN TAKEN. WOUND WELL APPROXIMATED WITH GENIA, NO REDNESS SWELLING OR DRAINAGE NOTED. RINSED WOUND WITH NS, PATTED DRY, APPLIED BETADINE, COVERED WITH COMPOSITE DRESSING. REAPPLIED ABD BINDER. PT TOLERATED WELL.
--- NOTE | 2017-11-23 13:10 | NUR ---
PT C/O BACK PAIN, WARM TOWEL APPLIED TO THE BACK. PT STATED FELT MUCH BETTER.
--- NOTE | 2017-11-23 14:10 | NUR ---
PT HAD A BM. BROWN, FORMED STOOL. MODERATED AMOUNT.
--- NOTE | 2017-11-23 14:35 | NUR ---
PT HAS BEEN DISCHARGED PER MD ORDER. IV DC'ED, TIP INTACT, PRESSURE APPLIED. DISCHARGE INSTRUCTION GIVEN. MADE PT AWARE THAT SHE NEEDS TO CALL THE NUMBER ON THE DISCHARGE PAPER TO MAKE APPOINTMENT WITH DR VÁSQUEZ AND DR YARBROUGH THE SURGEON. MEDICATION TEACHING GIVEN. PT VERBALIZED UNDERSTANDING. RX AND EXCUSE NOTE PROVIDED. PT LEFT IN STABLE CONDITION, NO ACUTE DISTRESS NOTED. PT HAS TAKEN ALL HIS BELONGINGS INCLUDING PROPERTIES STORED IN THE SAFE.
== END 2017-11-23 14:35 | disposition home or self-care (01) | DRG 326 ==
LOC: MED 02:25 → MTU 08:07
PROVIDERS: ADMIT Family Medicine; ATTEND Family Medicine
PROC: 0DN60ZZ Release Stomach, Open Approach (ICD-10-PCS; principal; 2017-11-19 16:20)
PROC: 0DNW0ZZ Release Peritoneum, Open Approach (ICD-10-PCS; 2017-11-19 16:20)
PROC: 0D9670Z Drainage of Stomach with Drainage Device, Via Natural or Artificial Opening (ICD-10-PCS; 2017-11-19 16:20)
DX: K42.0 Umbilical hernia with obstruction, without gangrene (principal); N17.0 Acute kidney failure with tubular necrosis; E43 Unspecified severe protein-calorie malnutrition; Z68.43 Body mass index [BMI] 50.0-59.9, adult; K56.51 Intestinal adhesions [bands], with partial obstruction; E66.01 Morbid (severe) obesity due to excess calories; I16.0 Hypertensive urgency; R00.1 Bradycardia, unspecified; D64.9 Anemia, unspecified; E87.6 Hypokalemia; E83.39 Other disorders of phosphorus metabolism; E83.42 Hypomagnesemia; R73.03 Prediabetes; E78.5 Hyperlipidemia, unspecified; M16.0 Bilateral primary osteoarthritis of hip; J45.909 Unspecified asthma, uncomplicated; I10 Essential (primary) hypertension; E78.00 Pure hypercholesterolemia, unspecified; M99.04 Segmental and somatic dysfunction of sacral region; Z90.49 Acquired absence of other specified parts of digestive tract; Z90.710 Acquired absence of both cervix and uterus; Z98.891 History of uterine scar from previous surgery
CPT/HCPCS: 36415; 71045; 80048; 80053; 80305; 81001; 82150; 83036; 83690; 83735; 83880; 84100; 84436; 84439; 84443; 84479; 84703; 85025; 85610; 85730; 86886; 86900; 86901; 87081; 87086; 93005; 96361; 96372; 96374; 96375; 96376; 99285; C9113; J0330; J0360; J0690; J0696; J1100; J1170; J1885; J2175; J2250; J2270; J2405; J2704; J3010; J3475; J3490; J7030; J7060; Q0092

== ENCOUNTER 2017-11-30 17:46 | Emergency (ER) | payer SELFPAY ==
[~2017-11-30] VITALS: Ht 165.1 cm; Wt 133.8 kg
[~2017-11-30 17:46] MED LIST changes: +ACET-9494 PO; +CHLO50TA33 PO; +DOCU-299 PO; +[UNRECOGNIZED DRUG - OTHER] BOTH EYES
--- NOTE | 2017-11-30 17:46 | NUR ---
PT BIBA TO BED 3.
[2017-11-30 17:48] VITALS: BP 134/85
--- NOTE | 2017-11-30 17:55 | NUR ---
57F BIBA FROM HOME C/O LEFT LOWER ABDOMINAL PAIN, BURNING, RADIATES TO RT LOWER ABDOMEN 02/13 X 11/19/17 S/P INCARCERATED HERNIA REPAIR AT [facility]. PT STATES NOTICED BLEEDING FROM SITE X TODAY; INCISION WITH GENIA NOTED TO MID-ABDOMEN WITH SMALL AMOUNT OF BLOOD OOZING FROM BOTTOM OF SURGICAL SITE; INCISION SITE WELL APPROXIMATED, NO SWELLING OR ERYTHEMA NOTED TO SITE AT THIS TIME; BLOOD NOTED TO BOTTOM OF DRESSING AT THIS TIME; PER [facility], PT STARTED TAKING ASPIRIN 3 DAYS AGO. PT STATES NO N/V/D AT THIS TIME; ABDOMEN SOFT, ROUND, NON-TENDER, ACTIVE BOWEL SOUNDS X 4 QUADRANTS; PT AA&OX4, BL LUNG SOUNDS CLEAR, RR EVEN/UNLABORED AT THIS TIME; PT RESTING IN BED WITH HOB ELEVATED AND IN LOWEST POSITION; POSITIONED FOR COMFORT; ER MD MADE AWARE OF STATUS. WILL CONTINUE TO MONITOR.
--- NOTE | 2017-11-30 18:10 | NUR ---
ER MD DR. WOOTEN EVALUATING PT AT BEDSIDE.
[2017-11-30] MEDS ORDERED: MORPHINE SULFATE 4 MG/ML SYR IM ONE (18:20)
[2017-11-30 19:03] VITALS: BP 134/85
--- NOTE | 2017-11-30 19:03 | NUR ---
Patient discharged with BP 134/85 DENIES HEADACHE AT THIS TIME, MD MADE AWARE. Written and verbal after care instructions given and explained. Patient alert, oriented and verbalized understanding of instructions. Ambulatory with steady gait. All questions addressed prior to discharge. ID band removed. Patient advised to follow up with PMD. Rx of JOSE A & COLIN given. Patient educated on indication of medication including possible reaction and side effects. Opportunity to ask questions provided and answered.
== END 2017-11-30 19:03 | disposition home or self-care (01) ==
LOC: MED 17:46
DX: L76.22 Postprocedural hemorrhage of skin and subcutaneous tissue following other procedure (principal); R10.30 Lower abdominal pain, unspecified; I10 Essential (primary) hypertension; Z79.82 Long term (current) use of aspirin; Z79.899 Other long term (current) drug therapy
CPT/HCPCS: 96372; 99283; J2270

== ENCOUNTER 2017-12-04 17:20 | Inpatient (IN) | payer SELFPAY ==
[~2017-12-04] VITALS: Ht 165.1 cm; Wt 133.8 kg
[~2017-12-04 17:20] MED LIST changes: -AMOX500C25 PO; -CHLO120L4 PO; -POTA10CE85 PO; -[UNRECOGNIZED DRUG - CODE] PO
[2017-12-04 17:32] VITALS: BP 135/79
[2017-12-04] MEDS ORDERED: PHE25S PO (17:36)
--- NOTE | 2017-12-04 17:36 | NUR ---
57 YO FEMALE BIB SELF FOR SURGICAL SITE INFECTION AND PAIN, PLACED ON BED 12 HAS LARGE STAPLED SURGICAL SITE MID ABDOMEN WITH SOME PURULENT DRAINAGE. DENIES N/V/D; SKIN IS PINK/WARM/DRY; AAOX4 WITH EVEN AND STEADY GAIT; LUNGS CLEAR BL; HR EVEN AND REGULAR; PT DENIES ANY FEVER, CP, SOB, OR COUGH AT THIS TIME; PATIENT STATES PAIN OF 7/10 AT THIS TIME; VSS; PATIENT POSITIONED FOR COMFORT; HOB ELEVATED; BEDRAILS UP X2; BED DOWN. ER MD MADE AWARE OF PT STATUS.
[2017-12-04] MEDS ORDERED: NACL 0.9% 1,000 ML IV ONE (17:51)
[2017-12-04] MEDS ORDERED: metroNIDAZOLE 500 MG/NS PREMIX 100 ML IV ONE (17:55)
[2017-12-04] MEDS ORDERED: PIPERACILLIN/TAZOBACTAM 3.375 GM in DEXTROSE 5% 50 ML IV ONE (17:55)
[2017-12-04] MEDS ORDERED: MORPHINE SULFATE 4 MG/ML SYR IVP ONE (17:55)
[2017-12-04] MEDS ORDERED: ONDANSETRON 4 MG/2 ML VIAL IVP ONE (17:55)
[2017-12-04] MEDS ORDERED: DOCUSATE SODIUM 100 MG GELCAP PO PRN (18:00)
[2017-12-04] MEDS ORDERED: PIPERACILLIN/TAZOBACTAM 3.375 GM in DEXTROSE 5% 50 ML IV SCH (18:00)
[2017-12-04] MEDS ORDERED: ACETAMINOPHEN 325 MG TAB PO PRN (18:00)
[2017-12-04] MEDS ORDERED: PIPERACILLIN/TAZOBACTAM 3.375 GM VIAL IV ONE (18:24)
[2017-12-04 18:37] LABS: PROTHROMBIN TIME 10.6 secs (10.8-13.4)
[2017-12-04 18:40] LABS: ANION GAP 10.9 (8-16); CARBON DIOXIDE 32.3 mmol/L (21-32); CREATININE 1.3 mg/dL (0.6-1.3); POTASSIUM 3.2 mmol/L (3.5-5.1)
[2017-12-04 18:42] LABS: ALBUMIN 2.5 g/dL (3.4-5.0); TOTAL BILIRUBIN 0.3 mg/dL (0.0-1.0)
[2017-12-04 18:44] LABS: BASOPHILS # (AUTO) 0.1 K/uL (0.00-0.22); BASOPHILS % (AUTO) 0.9 % (0.0-2.0); EOSINOPHILS # (AUTO) 0.1 K/uL (0-0.4); EOSINOPHILS % (AUTO) 0.9 % (0.0-4.0); HEMATOCRIT 31.7 % (36-48); HEMOGLOBIN 10.2 g/dL (12.0-16.0); LYMPHOCYTES # (AUTO) 1.7 K/uL (2.5-16.5); LYMPHOCYTES % (AUTO) 18.4 % (20.5-51.1); MEAN CORPUSCULAR HEMOGLOBIN 27 pg (27-31); MEAN CORPUSCULAR HGB CONC 32 g/dL (33-37); MEAN CORPUSCULAR VOLUME 83 fL (80-94); MONOCYTES % (AUTO) 10.7 % (1.7-9.3); NEUTROPHILS # (AUTO) 6.5 K/uL (1.8-7.7); NEUTROPHILS % (AUTO) 69.1 % (42.2-75.2); PLATELET COUNT (AUTO) 589 K/uL (140-450); RED BLOOD CELL COUNT(AUTO) 3.84 MIL/uL (4.20-5.40); RED CELL DISTRIBUTION WIDTH 14.4 % (11.6-13.7); WHITE BLOOD COUNT (AUTO) 9.4 K/uL (4.8-10.8)
[2017-12-04] MEDS ORDERED: HYDROmorphone PFS 2 MG/ML SYR ONE (18:59)
[2017-12-04] MEDS ORDERED: HYDROmorphone PFS 2 MG/ML SYR IVP ONE (19:00)
[2017-12-04] MEDS ORDERED: LIDOCAINE MPF 1% - **ER/OR** 0 ML ONE (19:01)
[2017-12-04] MEDS ORDERED: LIDOCAINE MPF 1% - **ER/OR** 5 ML ONE (19:05)
[2017-12-04 19:06] LABS: CHOL/HDL RATIO 3.1 (1-4.5); FREE T4 (FREE THYROXINE) 1.34 ng/dL (0.76-1.46); MAGNESIUM 1.9 mg/dL (1.8-2.4); PHOSPHORUS 3.4 mg/dL (2.5-4.9); THYROID STIMULATING HORMONE 1.44 uIU/mL (0.34-3.74)
[2017-12-04] MEDS ORDERED: LIDOCAINE MPF 1% - **ER/OR** 10 ML ONE (19:08)
--- NOTE | 2017-12-04 19:10 | NUR ---
DR MITCHELL PERFOEM I&D TO ABDOMEN WOUND. PT TOLERATED PROCEDURE WELL. DR PEARL ORDERED 1% LIDOCAINE X3 VIAL PER ORAL.
[2017-12-04] MEDS ORDERED: POTASSIUM CHLORIDE 10 MEQ TABER PO SCH (19:15)
[2017-12-04] MEDS ORDERED: LIDOCAINE 1% 500 MG/50 ML VIAL INJ ONE (19:20)
--- NOTE | 2017-12-04 19:29 | NUR ---
Pt report given to JOSE ABBOTT. Transfer of care at this time.
--- NOTE | 2017-12-04 19:30 | NUR ---
Patient will be admitted to care of [facility]. Admited to TELE. Will go to room 120B. Belongings list completed. Report to JOSE ESCALANTE.
--- NOTE | 2017-12-04 19:30 | NUR ---
PT STATES SHE IS UNABLE TO PROVIDE URINE SAMPLE AT THE MOMENT. FLOOR NURSE WILL BE NOTIFIED.
--- NOTE | 2017-12-04 19:45 | NUR ---
RECEIVED PT FROM ER VIA ENRIKE S/P DEBRIDEMENT AND GENIA REMOVED FROM ABD INCISION DEHISCENCE ABD HERNIA REPAIR, PT IS AAOX4 AMBULATORY IV ON RT AC INFUSING WELL ON TELEMETRY SR , ABD DRESSING DRY AND INTACT PT IS ORIENTED TO THE FLOOR CALL LIGHT WITHIN REACH.
[2017-12-04 20:00] VITALS: BP 98/62
[2017-12-04] MEDS: NACL 0.9% 1,000 ML IV SCH (20:00)
--- NOTE | 2017-12-04 22:00 | NUR ---
PT RESTING ON BED NOT DISTRESS NOTED, ON TELEMETRY SR ON CLOSE MO;NITORING ABD DRESSING IS REINFORCED
[2017-12-04] MEDS: HYDROcodone/APAP 7.5/325 MG 1 TAB PO PRN (22:40)
[2017-12-05] VITALS: BP 106/65
--- NOTE | 2017-12-05 | NUR ---
PT SLEEPING WELL DENIES ANY PAIN ON TELEMETRY SR ABD RESSSING DRY AND INTACT.
[2017-12-05] MEDS: HYDROcodone/APAP 7.5/325 MG 1 TAB PO PRN ×2 (03:22→08:02)
[2017-12-05] MEDS: ONDANSETRON 4 MG/2 ML VIAL IM/IVP PRN ×2 (03:25→21:25)
[2017-12-05 04:00] VITALS: BP 102/61
--- NOTE | 2017-12-05 04:00 | NUR ---
ANDRES CHANGED REPOSITIONED AFTER ASSISTING TO THE RESTROOM ON TELE SR
[2017-12-05 05:57] LABS: BASOPHILS % (AUTO) 0.5 % (0.0-2.0); EOSINOPHILS # (AUTO) 0.1 K/uL (0-0.4); EOSINOPHILS % (AUTO) 0.8 % (0.0-4.0); HEMATOCRIT 29.1 % (36-48); HEMOGLOBIN 9.4 g/dL (12.0-16.0); LYMPHOCYTES # (AUTO) 1.3 K/uL (2.5-16.5); LYMPHOCYTES % (AUTO) 14.6 % (20.5-51.1); MEAN CORPUSCULAR HEMOGLOBIN 27 pg (27-31); MEAN CORPUSCULAR HGB CONC 32 g/dL (33-37); MEAN CORPUSCULAR VOLUME 84 fL (80-94); MONOCYTES # (AUTO) 1.1 K/uL (0.8-1.0); MONOCYTES % (AUTO) 12.2 % (1.7-9.3); NEUTROPHILS # (AUTO) 6.7 K/uL (1.8-7.7); NEUTROPHILS % (AUTO) 71.9 % (42.2-75.2); PLATELET COUNT (AUTO) 470 K/uL (140-450); RED BLOOD CELL COUNT(AUTO) 3.48 MIL/uL (4.20-5.40); RED CELL DISTRIBUTION WIDTH 14.9 % (11.6-13.7); WHITE BLOOD COUNT (AUTO) 9.2 K/uL (4.8-10.8)
--- NOTE | 2017-12-05 06:37 | NUR ---
AFTER PAIN MEDIC GIVEN PT SLEEP QUIET NOT DISTRESS NOTED ABD DRESSING DRY AND INTACT ON TELE SR
[2017-12-05 06:40] LABS: ANION GAP 9.5 (8-16); CARBON DIOXIDE 31.2 mmol/L (21-32); CREATININE 1.5 mg/dL (0.6-1.3); POTASSIUM 3.7 mmol/L (3.5-5.1)
[2017-12-05 06:42] LABS: MAGNESIUM 1.9 mg/dL (1.8-2.4); PHOSPHORUS 4.2 mg/dL (2.5-4.9)
--- NOTE | 2017-12-05 07:30 | NUR ---
RECEIVED PT FROM ASSOCIATE CHEMIST RN. S/P DEBRIDEMENT. ABD IS COVERED WITH ABD PAD. DRESSING INTACT, CLEAN AND DRY. HERNIA REPAIR WAS DONE ON THE 11/20. PT ADMITTED FROM DR YARBROUGH OFFICE FOR INCISION COMPLICATIONS. PT IS AAOX4 AMBULATORY. IV ON R AC, INFUSING WELL, ASYMPTOMATIC. ON TELEMETRY, ALL SAFETY PRECAUTIONS MET. DISCUSSED PLAN OF CARE WITH PT. PT VERBALIZED UNDERSTANDING. UPDATED BOARD. WILL CONTINUE TO MONITOR.
--- NOTE | 2017-12-05 07:46 | NUR ---
CLARIFIED : ADMINISTERED DILADID 1MG IV VIA RAC AT 1820 ,12/04/17 BY BRITT CHARGE NURSE.
[2017-12-05 08:00] VITALS: BP 93/65
[2017-12-05 08:33] LABS: T4 (THYROXINE) 8.2 ug/dL (4.5-12.0)
--- NOTE | 2017-12-05 08:44 | NUR ---
PATIENT HAS BEEN SCREENED AND CATEGORIZED HIGH NUTRITION RISK. PATIENT WILL BE SEEN WITHIN 1-2 DAYS OF ADMISSION. 12/04/18-12/05/[address]
[2017-12-05] MEDS ORDERED: CHLORTHALIDONE 50 MG TAB PO SCH (09:00)
[2017-12-05] MEDS: hydrALAZINE 25 MG TAB PO SCH ×2 (09:00→21:30)
[2017-12-05] MEDS: BENAZEPRIL 20 MG TAB PO SCH ×2 (09:00→21:31)
[2017-12-05] MEDS ORDERED: ASPIRIN 325 MG TABEC PO SCH (09:00)
[2017-12-05] MEDS ORDERED: DOCUSATE SODIUM 100 MG GELCAP PO SCH (09:00)
--- NOTE | 2017-12-05 09:50 | NUR ---
PT'S OWN MED CHLORTHALIDONE SENT TO PHARM.
--- NOTE | 2017-12-05 09:56 | NUR ---
DISCUSSED WITH DR GRIFFIN ABOUT ASPIRIN 325MG. DR GRIFFIN ORDERED TO HOLD IT FOR NOW AND SHE WILL CHECK THE PT'S RECORD. MADE DR GRIFFIN AWARE THAT PT HAD DEBRIDEMENT AT THE SURGICAL SITE YESTERDAY AND SHE STATED SHE HAD A BM BEFORE SHE CAME INTO THE HOSPITAL.
--- NOTE | 2017-12-05 10:22 | NUR ---
WOUND EVALUATION NOTE: REASON FOR WOUND EVALUATION: EXCESSIVE DRAINAGE FROM SURGICAL WOUND SKIN ASSESSMENT DONE ON THIS 57 Y/O FEMALE PATIENT FROM HOME TO [facility], WITH INITIAL DIAGNOSIS OF ABDOMINAL WOUND DEHISCENCE. PAST MEDICAL HISTORY INCLUDE HTN, HERNIA REPAIR ON 11/19/2017. ALL ABOVE INFORMATION WAS OBTAINED FROM THE ADMISSION H&P AND PT. PT. IS AAX4. LABS ARE WBC 9.2, H/H 9.4/29.1, GLUCOSE 142, ALBUMIN 2.5. PT/INR 10.6/1.0. SKIN WARM TO TOUCH, WELL HYDRATE WITH GOOD SKIN TURGOR, TOENAILS ARE SLIGHTLY THICKENED, NO EDEMA, BLE WITH NO HAIR GROWTH AND NORMAL PEDAL PULSES. PT IS AMBULATORY, BRP, ABLE TO TURN SELF WITHOUT ASSISTANCE. PLAN OF CARE DISCUSSED WITH PT. AND PRIMARY RN. DR. GRIFFIN AT BED SIDE WILL CONTACT SURGEON INTEGUMENTARY: MID ABDOMINAL SURGICAL WOUND- [id number], WOUND BED RED WITH GRANULATING TISSUE, WOUND EDGE IS WELL DEFINED, MOE-WOUND SKIN INTACT, PINK IN COLOR, MODERATE AMOUNT OF MIXED BLOOD WITH LOOKS LIKED, SMELL LIKED LIQUID STOOL CONTENT. OLD HEALED SCAR TO RIGHT MEDIAL KNEE BILATERAL HEELS THIN CALLUS RECOMMENDATIONS: -CT ABDOMEN -CLEANSE MID ABDOMEN SURGICAL SITE WITH NS. PAT DRY,PACK WOUND WITH DRY GAUZES, COVER WITH ABDOMEN PAD SECURE WITH TAPE BID WC AND PRN IF SOILING -TURN AND REPOSITION PATIENT Q2H -OFFLOAD BILATERAL HEELS BY PLACING PILLOWS UNDER CALVES AT ALL TIMES, UNLESS OTHERWISE CONTRAINDICATED-KEEP -KEEP SKIN CLEAN AND DRY AT ALL TIMES. -PT. WAS INSTRUCTED TO HOLD ABDOMEN WHEN COUGH OR TURN/REPOSITION -CONTINUE TO FOLLOW RD RECOMMENDATION RECOMMENDATIONS DISCUSSED WITH PRIMARY RN AND DR. GRIFFIN WILL FOLLOW UP PATIENT Q 7-10 DAYS AND PRN. PLEASE CONTACT WOUND CARE NURSE FOR ANY QUESTIONS AND CHANGES IN WOUND CONDITION.
[2017-12-05] MEDS ORDERED: HYDROcodone/APAP 5/325 MG 1 TAB TAB PO SCH (10:30)
--- NOTE | 2017-12-05 10:30 | NUR ---
WOUND CARE NURSE GENO HAS SEEN THE PT. WOUND PIC TAKEN. WOUND HAS YELLOW STOOL LIKE DISCHARGE. SURROUNDING TISSUE IS PINK. WOUND CARE NURSE HAS CHANGED THE DRESSING. WILL CHANGE AGAIN IF IT'S SOILED OR SATURATED.
[2017-12-05] MEDS: NACL 0.9% 1,000 ML IV SCH ×2 (10:40→21:59)
[2017-12-05] MEDS ORDERED: HYDROcodone/APAP 7.5/325 MG 1 TAB PO SCH (10:42)
[2017-12-05 12:00] VITALS: BP 124/80
[2017-12-05] MEDS: PIPER/TAZO 3.375GM/D5W PREMIX 50 ML IV SCH ×2 (12:28→12:51)
--- NOTE | 2017-12-05 14:30 | NUR ---
CM NOTE INITIAL REVIEW FOR CRITERIA DONE
[2017-12-05] MEDS: MORPHINE SULFATE 2 MG/ML SYR IVP PRN ×2 (14:46→17:02)
--- NOTE | 2017-12-05 14:51 | NUR ---
12/05/2017 RD INITIAL ASSESSMENT COMPLETED PT TO CONSUME >75% EST KCAL NEEDS WITHIN 2-3 DAYS DIETITIAN WILL MONITOR NPO STATUS, NUTRITION-RELATED LABS TRENDING WNL, SKIN INTEGRITY, WEIGHTS, GI FUNCTION. DISCHARGE PLAN: ONGOING, PENDING CLINICAL COURSE. SEA ZAPATA RD
[2017-12-05 16:00] VITALS: BP 147/81
--- NOTE | 2017-12-05 17:00 | NUR ---
PREMEDICATED PT WITH MORPHINE 1MG. REMOVED OLD DRESSING AND PACKING. PLACED COLOTOMY BAG OVER THE INCISION WOUND.
--- NOTE | 2017-12-05 17:05 | NUR ---
ABD WOUND IS DRAINING YELLOW STOOL LIKE LIQUID.
[2017-12-05] MEDS ORDERED: PIPER/TAZO 3.375GM/D5W PREMIX 50 ML IV SCH (18:00)
--- NOTE | 2017-12-05 19:49 | NUR ---
ENDORSED PT TO PRINTED CIRCUIT PHOTOGRAPHER RN. PT IN STABLE CONDITION.
--- NOTE | 2017-12-05 19:50 | NUR ---
I TALKED TO SELENE TOW MATE REGARDING PT HEALTH INSURANCE, THEN PT 'S DAUGHTER WILL GIVE ALL INSURANCE INFORMATION TO ADMITTING
--- NOTE | 2017-12-05 19:50 | NUR ---
RECEIVED PT FROM NURSE SCHMID RN. PT AOX4, ON ROOM AIR, AMBULATORY, IV FLUIDS IN RIGHT AC INFUSING WELL. ON TELEMETRY UNIT-SR 79, OPEN ABDOMINAL WOUND WITH COLOSTOMY BAG DRAINING YELLOW/BROWN FLUIDS. NPO. RELATIVES AT BEDSIDE. BED IN LOWEST POSITION. CALL LIGHT WITHIN REACH. WILL CONTINUE TO MONITOR.
--- NOTE | 2017-12-05 19:50 | NUR ---
RECEIVED PT FROM DAY SHIFT NURSE DONNY GARCIA. PT AOX4, ON ROOM AIR. IV SALINE LOCK LEFT AC #24G, AMBULATORY WITH CANE. OBESE. +4 PITTING EDEMA BLE, DISCOLORATION, FLUID RESTRICTIONS 1,000ML/DAY. ON TELEMETRY UNIT-SR 84. INITIAL ASSESSMENT DONE. BED IN LOWEST POSITION. CALL LIGHT WITHIN REACH. WILL CONTINUE TO MONITOR. Addendum: 12/05/17 at 2018 by Bee Cramer RN WRONG PATIENT DOCUMENTATION.
--- NOTE | 2017-12-05 19:55 | NUR ---
DR. YARBROUGH IN ROOM TO SEE THE PT AND ORDER CLEAR LIQUID DIET. RELATIVE HERE TO GIVE INFORMATION ABOUT PT INSURANCE. BORIS GARCIA CALLED SELENE [employer] TO NOTIFY PT INSURANCE INFORMATION AND RELATIVE GOING TO ADMISSION TO VERIFY INFORMATION. AWAITING FOR TRANSFER TO HIGHER LEVEL OF CARE.
[2017-12-05 20:00] VITALS: BP 151/91
--- NOTE | 2017-12-05 20:15 | NUR ---
PT URINE SAMPLE SENT TO LAB.
[2017-12-05] MEDS ORDERED: LATANOPROST 0.005% OP 2.5 ML BTL BOTH EYES SCH (21:00)
[2017-12-05] MEDS ORDERED: SIMVASTATIN 20 MG TAB PO SCH (21:00)
[2017-12-05] MEDS ORDERED: MORPHINE SULFATE 2 MG/ML SYR IVP PRN (21:15)
[2017-12-05 21:32] LABS: APPEARANCE,URINE CLEAR (CLEAR); BILIRUBIN,URINE NEGATIVE (NEGATIVE); BLOOD, URINE 1+ (NEGATIVE); COLOR,URINE YELLOW (YELLOW); LEUKOCYTE ESTERASE ,URINE NEGATIVE (NEGATIVE); NITRITE, URINE NEGATIVE (NEGATIVE); UGLUCOSE NEGATIVE (NEGATIVE)
[2017-12-05 21:34] LABS: RBC,URINE 3-10 (FEW) /HPF (0-5); WBC,URINE 0-5 (RARE) /HPF (0-5)
--- NOTE | 2017-12-05 22:00 | NUR ---
PT AND PT DAUGHTER DECIDED TO SIGN AMA DUE TO HAVING TO WAITING FOR INSURANCE TO PROCESS IN ORDER TO BE TRANSFERRED TO HIGHER LEVEL OF CARE. I HAVE PERSONALLY EXPLAINED TO THE PATIENT AND PT DAUGHTER THE RISKS AND CONSEQUENCES INVOLVED IN LEAVING THE HOSPITAL AT THIS TIME, WELL THE BENEFITS TO CONTINUED TREATMENT AND HOSPITALIZATION, AND THE ALTERNATIVES.
--- NOTE | 2017-12-05 22:05 | NUR ---
DR YARBROUGH WAS NOTIFY THAT PATIENT AND PT ' DAUGHTER WANT TO SIGN AMA BECAUSE THEY DONT WANT TO WAIT FOR INSURANCE TO BE TRANSFER TO HIGH LEVEL OF CARE
--- NOTE | 2017-12-05 22:22 | NUR ---
PT ID BAND WAS REMOVED. IV WAS REMOVED, INTACT. COLOSTOMY BAG WAS REMOVED, ABDOMINAL WOUND WAS COVERED WITH DRESSING. FAMILY TOOK PT TO THE PARKING LOT.
== END 2017-12-05 22:55 | disposition left against medical advice (07) | DRG 862 ==
LOC: MED 17:20 → MTU 18:06
PROVIDERS: ADMIT Family Medicine Sports Medicine; ATTEND Family Medicine Sports Medicine
DX: T81.4XXA Infection following a procedure, initial encounter (principal); E43 Unspecified severe protein-calorie malnutrition; N17.0 Acute kidney failure with tubular necrosis; T81.31XA Disruption of external operation (surgical) wound, not elsewhere classified, initial encounter; K56.600 Partial intestinal obstruction, unspecified as to cause; L03.311 Cellulitis of abdominal wall; Z68.42 Body mass index [BMI] 45.0-49.9, adult; R74.0 Nonspecific elevation of levels of transaminase and lactic acid dehydrogenase [LDH]; M16.0 Bilateral primary osteoarthritis of hip; R73.03 Prediabetes; R80.9 Proteinuria, unspecified; Z53.21 Procedure and treatment not carried out due to patient leaving prior to being seen by health care provider; E66.01 Morbid (severe) obesity due to excess calories; I10 Essential (primary) hypertension; E87.6 Hypokalemia; D64.9 Anemia, unspecified; Z98.891 History of uterine scar from previous surgery; Z90.710 Acquired absence of both cervix and uterus; Z83.3 Family history of diabetes mellitus; Z90.49 Acquired absence of other specified parts of digestive tract
CPT/HCPCS: 36415; 74250; 80048; 80053; 81001; 82150; 83690; 83735; 83880; 84100; 84436; 84439; 84443; 84479; 85025; 85610; 86886; 86900; 86901; 87040; 87070; 87081; 93925; 93970; 96361; 96365; 96375; 99285; J1170; J2001; J2270; J2405; J2543; J3490; J7030; J7060; Q0092